=== PATIENT | male | born 1960 | race Caucasian/White ===

== ENCOUNTER 2024-09-04 12:29 | Emergency (ER) | payer BC, SELFPAY ==
[2024-09-04 12:40] VITALS: BP 124/70; PULSE 95; RESP 19; TEMP 36.5; O2SAT 96
[2024-09-04 13:02] VITALS: PULSE 95; RESP 19; O2SAT 96
--- NOTE | 2024-09-04 13:09 | ED.URI ---
HPI - URI/Sore Throat General Chief Complaint: Upper Respiratory Infection Stated Complaint: Asthma Time Seen by Provider: 09/04/24 13:09 Source: patient Mode of arrival: ambulatory Limitations: no limitations History of Present Illness HPI Narrative: 64-year-old male presents with with complaint of nasal congestion, sinus pressure, cough, chest congestion for 1 week. Patient taking [id number] medications without relief of symptoms. History of asthma. Has been using inhaler often. Patient states last time this happened he got antibiotic and steroids. Wants to start antibiotic before he feels worse. All systems reviewed and negative except as noted above. Related Data Home Medications Medication Instructions Recorded Confirmed albuterol 90 mcg/actuation aerosol 90 mcg inhalation DIRECTED 09/04/24 09/04/24 inhaler lisinopril 20 mg tablet 20 mg PO DAILY 09/04/24 09/04/24 metformin 750 mg tablet,extended 750 mg PO DIRECTED 09/04/24 09/04/24 release 24 hr montelukast 10 mg tablet 10 mg PO DAILY 09/04/24 09/04/24 pravastatin 20 mg tablet 20 mg PO DAILY 09/04/24 09/04/24 sildenafil 50 mg tablet 50 mg PO DIRECTED 09/04/24 09/04/24 Allergies Allergy/AdvReac Type Severity Reaction Status Date / Time ANTIBIOTIC EYE DROP AdvReac Intermediate Other Uncoded 09/04/24 12:51 Review of Systems Review of Systems: CONSTITUTIONAL: Denies fever, chills, or sweats. EYES: Denies visual changes, redness, or discharge. ENT: Reports rhinorrhea, congestion, sore throat. Denies otalgia. CARDIOVASCULAR: Denies chest pain, palpitations, or edema. RESPIRATORY: reports cough. Denies dyspnea. GASTROINTESTINAL: Denies abdominal pain, nausea, vomiting, or diarrhea. GENITOURINARY: Denies dysuria or hematuria. SKIN: Denies rash or itching. MUSCULOSKELETAL: Denies back pain, joint pain, or myalgia. NEUROLOGIC: Denies headache, numbness, or weakness. PSYCHIATRIC: Denies anxiety or depression. All other systems reviewed are negative, except as documented in HPI. PMFSH Comments At time of signature, agree with nursing past medical, surgical, social and family history. There is no relevant family history pertinent to the presenting complaint. Exam Narrative: GENERAL: This is a well-nourished, well-developed patient, in no apparent distress. HEAD: normocephalic, atraumatic. EYES: PERRL. Sclera clear/white. Vision is grossly intact. EARS: External ears normal, auditory canals clear and without drainage, TMs normal without perforation. Hearing grossly intact. NOSE: External nose normal with purulent nasal drainage, erythema and swelling to bilateral nares. Tenderness to frontal and maxillary sinus tenderness THROAT: Mucous membranes moist, purulent postnasal drainage, erythema, swelling, no exudates NECK: Neck supple, non-tender without lymphadenopathy, masses or thyromegaly. CARDIOVASCULAR: Regular rate and rhythm without murmurs, gallops, or rubs. RESPIRATORY: Clear to auscultation. Breath sounds equal bilaterally. No wheezes, rales, or rhonchi. SKIN: warm, Dry, intact with no suspicious lesions or rash, good texture and turgor. NEURO: awake, alert, and oriented to person, place and time. There were no obvious focal neurologic abnormalities. EXTREMITIES: No joint tenderness, effusion, or edema noted. Course Course Level of Care: Express Care Visit Vital Signs Vital signs: Vital Signs Temperature 36.5 C 09/04/24 12:40 Pulse Rate 95 09/04/24 12:40 Respiratory Rate 19 09/04/24 12:40 Blood Pressure 124/70 09/04/24 12:40 Pulse Oximetry 96 09/04/24 12:40 Oxygen Delivery Room Air 09/04/24 12:40 Temperature 36.5 C 09/04/24 12:40 Pulse Rate 95 09/04/24 13:02 Respiratory Rate 19 09/04/24 13:02 Blood Pressure 124/70 09/04/24 12:40 Pulse Oximetry 96 09/04/24 13:02 Oxygen Delivery Room Air 09/04/24 12:40 reviewed MDM - URI/Sore Throat MDM Narrative Medical dec
== END 2024-09-04 13:30 | disposition home or self-care (01) ==
PROVIDERS: Emergency Provider Nurse Practitioner Family
DX: J01.90 Acute sinusitis, unspecified (principal); B96.89 Other specified bacterial agents as the cause of diseases classified elsewhere; Z79.899 Other long term (current) drug therapy; Z79.84 Long term (current) use of oral hypoglycemic drugs
CPT/HCPCS: 99213; G0463